=== PATIENT | female | born 1965 | race Caucasian/White ===

== ENCOUNTER → 2024-04-24 | Outpatient (CLI) | payer OTHER ==
[2024-04-24 11:40] VITALS: BP 117/73; PULSE 84; RESP 16
--- NOTE | 2024-04-24 14:55 | P.PAINPG ---
PQRS Measure Charge Sheet Comment: HISTORY OF PRESENT ILLNESS: A 58 yr old female as a referral from Dr Mack presents today w severe and chronic LBP > 1 yr secondary to post laminectomy syndrome, R Sacroiliitis for evaluation. Pt states pain level is provoked at 7 /10 in intensity, constant, localized in the lumbar spine, predominantly axial, sharp in character w occasional shooting pain towards the hips, groin and LEs. Pain is provoked by any movement. Pain is alleviated by PT x 6 wks which ended in Jun 2023, physician guided home stretches daily since Jun 2023, medications ([place] 5/325mg #[address] Mack), repositioning and rest . Oswestry axial pain score at 26. PMH: OA, HTN, CAD, Hyperlipidemia, IDDM II, GERD, Asthma, OCD/ Anxiety, JOHN, CKD IIIa, Seasonal Allergies PSH: Ectopic , Joint Replacement, L2-L4 Fusion (2000), Tonsillectomy, Cataract Extraction, Finger Tendon Repair SH: Daily tobacco use, No ETOH abuse, No illicit drug use FH: DM & CAD All: See list Meds: See list REVIEW OF ORGAN SYSTEMS: CONSTITUTIONAL: No fevers or chills. No recent weight loss. NEUROLOGICAL: + numbness and tingling along the distal extremities. No seizure disorders or headaches. MUSCULOSKELETAL: + pain PSYCHIATRIC: Denies current depression or suicidal thoughts. Physical Examinations : Constitutional : Cooperative , not in acute distress . Neurologic : Cranial nerve II to XII intact. No focal neurological deficits. Psychiatric : alert & oriented x 3. Matching mood & appropriate affect. Judgment & insight intact. Musculoskeletal : Cervical Spine Motor strength in the deltoid and biceps: Normal right side. Normal Left side Motor strength biceps and the wrist extensors: Normal right side . Normal left side Motor strength in the triceps muscle: Normal right side. Normal left side Deep tendon reflexes: Normal at the biceps. Normal at Brachioradialis. Normal at triceps Vertebral body tenderness to deep palpation over Cervical facet loading test: positive bilaterally Spurling test: positive bilaterally Neck distraction test: positive bilaterally Ross sign: positive bilaterally Lumbar spine Motor strength lower extremities ,thigh and legs 5/5 Right side , 5/5 Left side Deep tendon reflexes : Normal Knee Jerk. Normal Ankle Jerk Vertebral body tenderness over Duran Test positive Lumbar facet Loading Test: positive Right / positive Left Range of motion of the lumbar spine Flexion 30 degrees, extension 10 degrees Straight Leg Raise test: Left/ Right positive at degrees Vinicius test: positive right / positive left. Severe tenderness over the Sacroiliac joint on the Right / Left sides Gaenslen test: positive bilaterally Seated flexion test: positive bilaterally. Sacral spine : Severe tenderness over the Sacroiliac joint: right side / left side Range of motion: Flexion of the lumbar spine <60 degrees Range of motion: Extension of the lumbar spine <20 degrees Gaenslen's Test positive on R Vinicius test: positive right side / left side Thigh Thrust Test R positive Sacral Thrust Test Assessment/ Plan : R Sacroiliitis, L2-L4 Fusion Recommendation of R SI injection #1. May need a series of injections for optimal pain relief. Risks, benefits of procedure discussed and patient verbalized understanding. Admits to anti- coagulant use or medical history of diabetes. Protocol for discontinuation/ continuation of medications arun procedure discussed. All questions answered. I have spent greater than 30 minutes on patient care today. Dr Powers was available by phone for the evaluation of this patient. The time was used to review the medical records including relevant urine studies and Prescription history (MAPs), review of the available imaging, evaluation and examination of the patient, coordination of care with the medical staff and if applicable referring physicians, as well as creation of the medical record PQRS Narrative: Smoking Status Current every day smoker Home Medications: Ambulatory Orders Cetirizine HCl [Zyrtec] 10 mg PO DAILY 09/24/16 Famotidine [Pepcid] 20 mg PO DAILY #20 tablet 09/24/16 Controlled Substance Measures - Controlled Substance Measures Is patient prescribed a controlled substance at discharge?: No
== END ==
LOC: PNWHC3 10:43
PROVIDERS: ATTEND Specialist
DX: M53.3 Sacrococcygeal disorders, not elsewhere classified (principal); M46.1 Sacroiliitis, not elsewhere classified; M43.26 Fusion of spine, lumbar region; F17.200 Nicotine dependence, unspecified, uncomplicated; Z88.8 Allergy status to other drugs, medicaments and biological substances; Z91.040 Latex allergy status; Z88.0 Allergy status to penicillin
CPT/HCPCS: 99211

== ENCOUNTER 2024-05-13 09:32 | Day surgery (SDC) | payer OTHER ==
[2024-05-13] MEDS ORDERED: LACTATED RINGERS 1,000 ML IV SCH (09:47)
[2024-05-13 10:17] LABS: Glucose,Whole Blood 99 mg/dL (70-110)
[2024-05-13 10:28] VITALS: RESP 16; TEMP 97
[2024-05-13] MEDS ORDERED: ROPIVACAINE 5MG/ML 20ML VIAL ONE (11:08)
[2024-05-13] MEDS ORDERED: methylPREDNISolone ACETATE 40 MG/ML 1 ML VIAL ONE (11:08)
[2024-05-13] MEDS ORDERED: IOPAMIDOL M300 15ML VIAL ONE (11:08)
--- NOTE | 2024-05-13 11:25 | P.PCN ---
Description of Procedure: Preprocedure diagnosis. Sacroiliac joint arthropathy. Postprocedure diagnosis. As above. Procedure done. Injection of the radio contrast material into right sacroiliac joint, sacroiliac joint arthrogram, interpretation of arthrogram. right sacroiliac joint injection with local anesthetics and steroid under fluoroscopic guidance. Anesthesia. Local anesthetic infiltration. As per anesthesia department. Continuous EKG, pulse ox, blood pressure, and verbal communication was maintained with the patient in OR. Blood loss. Minimal. Indication. Sacroiliac joint arthropathy. Discussed the procedure, alternatives, complications which may include infection,bleeding, nerve damage, aggravation of pain which could be permanent. Patient understands and questions were answered. Procedure note. After getting consent patient in OR in prone position. Back prepped with chlorhexidine and draped in sterile manner. After injecting 10 mL of 1% lidocaine subcutaneously, a 22-gauge spinal needle was introduced under tunnel vision of the fluoroscope in the lower and posterior one third of right sacroiliac joint. After needle position confirmation by AP and crosstable lateral view, 1 mL of Isovue 200 contrast was injected. Contrast was noted to be into the sacroiliac joint. After repeat negative aspiration, 2.5 mL solution was injected which consists of 1.5 ml of 0.5% Ropivacaine mixed with 1 mL of 40 mg Depo-Medrol. After the procedure needles were taken out. Bandage applied. Disposition. Patient tolerated the procedure well. No complication. Patient was discharged home in stable condition.
[2024-05-13 11:42] VITALS: BP 110/66; PULSE 67
--- NOTE | 2024-05-13 12:23 | FL ---
Fluoroscopy History: SI JOINT PAIN RT SI JOINT INJECTION. 25 SECS FL. [id number] DAP.
== END 2024-05-13 11:57 | disposition home or self-care (01) ==
LOC: ORPAIN 09:32
PROVIDERS: ATTEND Pain Medicine Interventional Pain Medicine
DX: M46.1 Sacroiliitis, not elsewhere classified (principal); Z88.0 Allergy status to penicillin; Z91.040 Latex allergy status; Z91.09 Other allergy status, other than to drugs and biological substances
CPT/HCPCS: Q9967; J2795; J1010; G0260; 27096

== ENCOUNTER → 2024-05-29 | Outpatient (CLI) | payer OTHER | LOC: PNWHC3 09:45 | PROVIDERS: ATTEND Specialist | DX: M46.1 Sacroiliitis, not elsewhere classified | CPT/HCPCS: 99211 ==

== ENCOUNTER 2024-07-17 08:07 | Day surgery (SDC) | payer OTHER ==
[2024-07-11 17:01] VITALS: BMI 34.3
[2024-07-17] MEDS ORDERED: LACTATED RINGERS 1,000 ML IV SCH (08:15)
[2024-07-17 08:40] VITALS: RESP 16; TEMP 97.1
[2024-07-17 08:41] LABS: Glucose,Whole Blood 85 mg/dL (70-110)
[2024-07-17] MEDS ORDERED: IOPAMIDOL M200 10 ML VIAL ONE (08:47)
[2024-07-17] MEDS ORDERED: TRIAMCINOLONE ACETONIDE 40 MG/ML 1 ML VIAL ONE (08:47)
--- NOTE | 2024-07-17 08:55 | P.PCN ---
Date of Procedure: 07/17/24 Description of Procedure: Pre- and Post-operative Diagnosis: Sacroilitis and Lumbar Spondylosis Procedure: Left side sacroiliac Joint injection under biplanar fluoroscopy Left side sacroiliac joint arthrogram Surgeon: Anjelica Frausto Anesthesia: Local: 1% Lidocaine, IV sedation: None Complications: none EBL : None Specimen removed: None Fluoroscopic image: Saved to patient electronic medical records. Indications for Procedure: The patient is well known to our pain clinic. Failed with the conservative pain management therapy. So scheduled for bilateral sacroiliac joint injection with fluoroscopic guidance. Procedure and Findings: The patient was seen and examined in the holding area. The written informed consent was obtained after explaining the risks, benefits and alternatives of the procedure to the patient. The patient was brought to the procedure room and was placed in the prone position on the operating room table. A pillow was placed under the lower abdomen. The anesthesia was started as mentioned above and monitoring was done with noninvasive blood pressure cuff, EKG and pulse oximetry. The skin preparation was done with ChloraPrep, and draping was done in usual sterile fashion. Sterile technique was observed throughout the procedure. AP and little oblique fluoroscopic views of the sacral spine and pelvis were obtained to identify the left sacroiliac joint. About one cm above the inferior margin of the left sacroiliac joint was marked for needle entry. 2 mL ml of 1% Lidocaine was injected with a 25 gauge needle to achieve adequate local anesthesia of the skin and subcutaneous tissue. A 25 gauge 3.5 inch spinal needle was introduced and advanced into the target area under direct fluoroscopic guidance. A contact was felt and the needle was advanced little further. No parathesia was noted. A negative aspiration was confirmed and then 0.5 ml [id number] was injected. A good dye spread was seen along the joint space. A total of 3 mL ml solution containing Kenalog 40 mg and 2 ml of 1% preservative-free lidocaine was injected slowly. The needles were removed intact. Area was cleaned and bandages were applied. Disposition : The patient tolerated the procedure very well. The patient was transferred to the recovery room and remained stable until discharged home. The patient was given detailed discharge instructions for infection, bleeding, and increased pain at the injection site, and was advised to seek immediate medical attention should significant side effects develop. The patient will be followed up with our Pain Clinic within 2-4 weeks for a repeat procedure if the procedure helpful.
[2024-07-17 09:01] VITALS: BP 114/67; PULSE 74
--- NOTE | 2024-07-17 09:13 | FL ---
EXAMINATION TYPE: FL guided pain mgmt statistic DATE OF EXAM: 07/17/2024 8:57 AM COMPARISON: Pre Operative Images if available both CT/MRI or plain film CLINICAL INDICATION: Female, 58 years old with history of SI Inj; TECHNIQUE: FL guided pain mgmt statistic, multiple fluoroscopic images provided for procedure. Total fluoroscopy time: 11.9 seconds Total submitted images to PACS: 1 DAP: [id number] mGym2 Gycm2 uGym2 cGycm2 or equivalent. FINDINGS: Fluoroscopic images during injection for pain management demonstrate multilevel degeneration changes throughout the spine. No evidence for fracture. No acute process identified. IMPRESSION: 1. No evidence for intraoperative complication. 2. Please see the operative/procedural note for further details. [facility], , 07/17/2024 9:11 AM
== END 2024-07-17 09:13 | disposition home or self-care (01) ==
LOC: ORPAIN 08:07
DX: M46.1 Sacroiliitis, not elsewhere classified
CPT/HCPCS: 27096

== ENCOUNTER → 2024-08-04 | Outpatient (CLI) | payer OTHER ==
[2024-08-04 10:18] VITALS: BP 124/84; PULSE 89; RESP 18; TEMP 99.6
--- NOTE | 2024-08-04 14:25 | P.PAINPG ---
PQRS Measure Charge Sheet Comment: HISTORY OF PRESENT ILLNESS: A 58 yr old female presents today w severe and chronic LBP > 1 yr secondary to post laminectomy syndrome, BL Sacroiliitis for evaluation s/p R SI #1. Pt states she experienced 98 % pain relief s/p procedure. Pt states pain level is provoked at 1 /10 in intensity, constant, localized in the lumbar spine, predominantly axial, sharp in character w occasional shooting pain towards the hips, groin and LEs. Pain is provoked by any movement. Pain is alleviated by PT x 6 wks which ended in Jun 2023, physician guided home stretches daily since Jun 2023, medications, repositioning and rest . Interventional procedures include L SI x1, R SI x1 Medications include [place] 5/325mg #[address] Mack REVIEW OF ORGAN SYSTEMS: CONSTITUTIONAL: No fevers or chills. No recent weight loss. NEUROLOGICAL: + numbness and tingling along the distal extremities. No seizure disorders or headaches. MUSCULOSKELETAL: + pain PSYCHIATRIC: Denies current depression or suicidal thoughts. Physical Examinations : Constitutional : Cooperative , not in acute distress . Neurologic : Cranial nerve II to XII intact. No focal neurological deficits. Psychiatric : alert & oriented x 3. Matching mood & appropriate affect. Judgment & insight intact. Musculoskeletal : Cervical Spine Motor strength in the deltoid and libby ps: Normal right side. Normal Left side Motor strength biceps and the wrist extensors: Normal right side . Normal left side Motor strength in the triceps muscle: Normal right side. Normal left side Deep tendon reflexes: Normal at the biceps. Normal at Brachioradialis. Normal at triceps Vertebral body tenderness to deep palpation over Cervical facet loading test: positive bilaterally Spurling test: positive bilaterally Neck distraction test: positive bilaterally Ross sign: positive bilaterally Lumbar spine Motor strength lower extremities ,thigh and legs 5/5 Right side , 5/5 Left side Deep tendon reflexes : Normal Knee Jerk. Normal Ankle Jerk Vertebral body tenderness over Duran Test positive Lumbar facet Loading Test: positive Right / positive Left Range of motion of the lumbar spine Flexion 30 degrees, extension 10 degrees Straight Leg Raise test: Left/ Right positive at degrees Vinicius test: positive right / positive left. Severe tenderness over the Sacroiliac joint on the Right / Left sides Gaenslen test: positive bilaterally Seated flexion test: positive bilaterally. Sacral spine : Severe tenderness over the Sacroiliac joint: right side / left side Range of motion: Flexion of the lumbar spine <60 degrees Range of motion: Extension of the lumbar spine <20 degrees Gaenslen's Test positive on R Vinicius test: positive right side / left side Thigh Thrust Test R positive Sacral Thrust Test Assessment/ Plan : BL Sacroiliitis, L2-L4 Fusion Will manage residual pain and may RTC on an as needed basis. All questions answered. I have spent greater than 30 minutes on patient care today. Dr Powers was available by phone for the evaluation of this patient. The time was used to review the medical records including relevant urine studies and Prescription history (MAPs), review of the available imaging, evaluation and examination of the patient, coordination of care with the medical staff and if applicable referring physicians, as well as creation of the medical record PQRS Narrative: Smoking Status Current every day smoker Hx Alcohol Use (MH) No Home Medications: Ambulatory Orders Famotidine [Pepcid] 20 mg PO DAILY #20 tablet 09/24/16 Albuterol Inhaler [Ventolin Hfa Inhaler] 1 - 2 puff INHALATION Q6H 05/13/24 Aspirin 81 mg PO DAILY 05/13/24 Atorvastatin [Lipitor] 40 mg PO DAILY 05/13/24 Empagliflozin [Jardiance] 25 mg PO DAILY 05/13/24 Escitalopram Oxalate [Lexapro] 30 mg PO DAILY 05/13/24 Fluticasone Nasal [place] [Flonase Nasal [place]] 1 spray EA NOSTRIL BID 05/13/24 Fluticasone/Umeclidin/Vilanter [Trelegy Ellipta 100-62.5-25] 1 inhalation INHALATION DAILY 05/13/24 Furosemide [Lasix] 40 mg PO BID 05/13/24 HYDROcodone/APAP 5-325MG [[place] 5-325] 1 tab PO TID 05/13/24 Ibuprofen [Advil] 800 mg PO DAILY PRN 05/13/24 Loratadine [Claritin] 10 mg PO DAILY 05/13/24 Losartan Potassium [Cozaar] 100 mg PO DAILY 05/13/24 Montelukast [Singulair] 10 mg PO DAILY 05/13/24 Potassium Chloride [K-Tab ER] 20 meq PO BID 05/13/24 Spironolactone [Aldactone] 25 mg PO DAILY 05/13/24 Tirzepatide [Mounjaro] 7.5 mg SQ TH 05/13/24 carvediloL [Coreg] 6.25 mg PO BID 05/13/24 Controlled Substance Measures - Controlled Substance Measures Is patient prescribed a controlled substance at discharge?: No
== END ==
LOC: PNWHC3 09:57
PROVIDERS: ATTEND Specialist
DX: M46.1 Sacroiliitis, not elsewhere classified
CPT/HCPCS: 99211

== ENCOUNTER → 2024-11-10 | Outpatient (CLI) | payer MEDICARE, OTHER ==
[2024-11-10 12:28] VITALS: BP 124/82; PULSE 77; RESP 15; TEMP 89.7
--- NOTE | 2024-11-10 15:21 | P.PAINPG ---
PQRS Measure Charge Sheet Comment: HISTORY OF PRESENT ILLNESS: A 59 yr old female presents today w severe and chronic LBP > 1 yr secondary to post laminectomy syndrome, BL Sacroiliitis for evaluation. Pt states pain level is provoked at 6 /10 in intensity, constant, localized in the lumbar spine, predominantly axial, sharp in character w occasional shooting pain towards the hips and buttocks. Pain is provoked by sitting for periods > 30 min. Pain is alleviated by PT x 6 wks which ended in Jun 2023, physician guided home stretches daily since Jun 2023, medications, repositioning and rest . Interventional procedures include L SI x1 (07/17/24), R SI x1 Medications include [place] 5/325mg #[address] Mack REVIEW OF ORGAN SYSTEMS: CONSTITUTIONAL: No fevers or chills. No recent weight loss. NEUROLOGICAL: + numbness and tingling along the distal extremities. No seizure disorders or headaches. MUSCULOSKELETAL: + pain PSYCHIATRIC: Denies current depression or suicidal thoughts. Physical Examinations : Constitutional : Cooperative , not in acute distress . Neurologic : Cranial nerve II to XII intact. No focal neurological deficits. Psychiatric : alert & oriented x 3. Matching mood & appropriate affect. Judgment & insight intact. Musculoskeletal : Cervical Spine Motor strength in the deltoid and biceps: Normal right side. Normal Left side Motor strength biceps and the wrist extensors: Normal right side . Normal left side Motor strength in the triceps muscle: Normal right side. Normal left side Deep tendon reflexes: Normal at the biceps. Normal at Brachioradialis. Normal at triceps Vertebral body tenderness to deep palpation over Cervical facet loading test: positive bilaterally Spurling test: positive bilaterally Neck distraction test: positive bilaterally Ross sign: positive bilaterally Lumbar spine Motor strength lower extremities ,thigh and legs 5/5 Right side , 5/5 Left side Deep tendon reflexes : Normal Knee Jerk. Normal Ankle Jerk Vertebral body tenderness over Duran Test positive Lumbar facet Loading Test: positive Right / positive Left Range of motion of the lumbar spine Flexion 30 degrees, extension 10 degrees Straight Leg Raise test: Left/ Right positive at degrees Vinicius test: positive right / positive left. Severe tenderness over the Sacroiliac joint on the Right / Left sides Gaenslen test: positive bilaterally Seated flexion test: positive bilaterally. Sacral spine : Severe tenderness over the Sacroiliac joint: right side / left side Range of motion: Flexion of the lumbar spine <60 degrees Range of motion: Extension of the lumbar spine <20 degrees Gaenslen's Test positive BL Vinicius test: positive right side / left side Thigh Thrust Test BL positive Sacral Thrust Test Assessment/ Plan : BL Sacroiliitis, L2-L4 Fusion Recommendation of BL SI injection #2. Risks, benefits of procedure discussed and pt verbalized understanding. All questions answered. I have spent greater than 30 minutes on patient care today. Dr Powers was available by phone for the evaluation of this patient. The time was used to review the medical records including relevant urine studies and Prescription history (MAPs), review of the available imaging, evaluation and examination of the patient, coordination of care with the medical staff and if applicable referring physicians, as well as creation of the medical record PQRS Narrative: Smoking Status Current every day smoker Narcotic Agreement Date Signed 08/04/24 Hx Alcohol Use (MH) No Home Medications: Ambulatory Orders Famotidine [Pepcid] 20 mg PO DAILY #20 tablet 09/24/16 Albuterol Inhaler [Ventolin Hfa Inhaler] 1 - 2 puff INHALATION Q6H 05/13/24 Aspirin 81 mg PO DAILY 05/13/24 Atorvastatin [Lipitor] 40 mg PO DAILY 05/13/24 Empagliflozin [Jardiance] 25 mg PO DAILY 05/13/24 Escitalopram Oxalate [Lexapro] 30 mg PO DAILY 05/13/24 Fluticasone Nasal [place] [Flonase Nasal [place]] 1 spray EA NOSTRIL BID 05/13/24 Fluticasone/Umeclidin/Vilanter [Trelegy Ellipta 100-62.5-25] 1 inhalation INHALATION DAILY 05/13/24 Furosemide [Lasix] 40 mg PO BID 05/13/24 HYDROcodone/APAP 5-325MG [[place] 5-325] 1 tab PO TID 05/13/24 Ibuprofen [Advil] 800 mg PO DAILY PRN 05/13/24 Loratadine [Claritin] 10 mg PO DAILY 05/13/24 Losartan Potassium [Cozaar] 100 mg PO DAILY 05/13/24 Montelukast [Singulair] 10 mg PO DAILY 05/13/24 Potassium Chloride [K-Tab ER] 20 meq PO BID 05/13/24 Spironolactone [Aldactone] 25 mg PO DAILY 05/13/24 Tirzepatide [Mounjaro] 7.5 mg SQ TH 05/13/24 carvediloL [Coreg] 6.25 mg PO BID 05/13/24 Controlled Substance Measures - Controlled Substance Measures Is patient prescribed a controlled substance at discharge?: No
== END ==
LOC: PNWHC3 11:09
PROVIDERS: ATTEND Specialist
DX: M46.1 Sacroiliitis, not elsewhere classified (principal); M43.26 Fusion of spine, lumbar region; F17.210 Nicotine dependence, cigarettes, uncomplicated; Z88.8 Allergy status to other drugs, medicaments and biological substances; Z91.040 Latex allergy status; Z88.0 Allergy status to penicillin; Z88.6 Allergy status to analgesic agent; Z91.09 Other allergy status, other than to drugs and biological substances
CPT/HCPCS: 99212

== ENCOUNTER → 2024-12-17 | Outpatient (CLI) | payer MEDICARE, OTHER ==
[2024-12-17 10:04] VITALS: BP 127/83; PULSE 71; RESP 15; TEMP 96.8
--- NOTE | 2024-12-17 15:38 | P.PAINPG ---
PQRS Measure Charge Sheet Comment: HISTORY OF PRESENT ILLNESS: A 59 yr old female presents today w severe and chronic LBP > 1 yr secondary to post laminectomy syndrome, BL Sacroiliitis for evaluation s/p BL SI injection #2. Pt states she experienced 75 % pain relief x 3 wks s/p procedure. Pt states pain level is provoked at 1 /10 in intensity, constant, localized in the lumbar spine, predominantly axial, sharp in character w occasional shooting pain towards the hips and buttocks. Pain is provoked by sitting for periods > 30 min. Pain is alleviated by PT x 6 wks which ended in Jun 2023, physician guided home stretches daily since Jun 2023, medications, repositioning and rest . Interventional procedures include L SI x1 (07/17/24), R SI x1, BL SI x1 (12/09) Medications include [place] 5/325mg #[address] Mack REVIEW OF ORGAN SYSTEMS: CONSTITUTIONAL: No fevers or chills. No recent weight loss. NEUROLOGICAL: + numbness and tingling along the distal extremities. No seizure disorders or headaches. MUSCULOSKELETAL: + pain PSYCHIATRIC: Denies current depression or suicidal thoughts. Physical Examinations : Constitutional : Cooperative , not in acute distress . Neurologic : Cranial nerve II to XII intact. No focal neurological deficits. Psychiatric : alert & oriented x 3. Matching mood & appropriate affect. Judgment & insight intact. Musculoskeletal : Cervical Spine Motor strength in the deltoid and biceps: Normal right side. Normal Left side Motor strength biceps and the wrist extensors: Normal right side . Normal left side Motor strength in the triceps muscle: Normal right side. Normal left side Deep tendon reflexes: Normal at the biceps. Normal at Brachioradialis. Normal at triceps Vertebral body tenderness to deep palpation over Cervical facet loading test: positive bilaterally Spurling test: positive bilaterally Neck distraction test: positive bilaterally Ross sign: positive bilaterally Lumbar spine Motor strength lower extremities ,thigh and legs 5/5 Right side , 5/5 Left side Deep tendon reflexes : Normal Knee Jerk. Normal Ankle Jerk Vertebral body tenderness over Duran Test positive Lumbar facet Loading Test: positive Right / positive Left Range of motion of the lumbar spine Flexion 30 degrees, extension 10 degrees Straight Leg Raise test: Left/ Right positive at degrees Vinicius test: positive right / positive left. Severe tenderness over the Sacroiliac joint on the Right / Left sides Gaenslen test: positive bilaterally Seated flexion test: positive bilate rally. Sacral spine : Severe tenderness over the Sacroiliac joint: right side / left side Range of motion: Flexion of the lumbar spine <60 degrees Range of motion: Extension of the lumbar spine <20 degrees Gaenslen's Test positive BL Vinicius test: positive right side / left side Thigh Thrust Test BL positive Sacral Thrust Test Assessment/ Plan : BL Sacroiliitis, L2-L4 Fusion Will manage residual pain and may RTC on an as needed basis. All questions answered. I have spent greater than 30 minutes on patient care today. Dr Powers was available by phone for the evaluation of this patient. The time was used to review the medical records including relevant urine studies and Prescription history (MAPs), review of the available imaging, evaluation and examination of the patient, coordination of care with the medical staff and if applicable refer ring physicians, as well as creation of the medical record PQRS Narrative: Smoking Status Current every day smoker Narcotic Agreement Date Signed 08/04/24 Hx Alcohol Use (MH) No Home Medications: Ambulatory Orders Famotidine [Pepcid] 20 mg PO DAILY #20 tablet 09/24/16 Albuterol Inhaler [Ventolin Hfa Inhaler] 1 - 2 puff INHALATION Q6H 05/13/24 Aspirin 81 mg PO DAILY 05/13/24 Atorvastatin [Lipitor] 40 mg PO DAILY 05/13/24 Empagliflozin [Jardiance] 25 mg PO DAILY 05/13/24 Escitalopram Oxalate [Lexapro] 30 mg PO DAILY 05/13/24 Fluticasone Nasal [place] [Flonase Nasal [place]] 1 spray EA NOSTRIL BID 05/13/24 Fluticasone/Umeclidin/Vilanter [Trelegy Ellipta 100-62.5-25] 1 inhalation INHALATION DAILY 05/13/24 Furosemide [Lasix] 40 mg PO BID 05/13/24 HYDROcodone/APAP 5-325MG [[place] 5-325] 1 tab PO TID 05/13/24 Ibuprofen [Advil] 800 mg PO DAILY PRN 05/13/24 Loratadine [Claritin] 10 mg PO DAILY 05/13/24 Losartan Potassium [Cozaar] 100 mg PO DAILY 05/13/24 Montelukast [Singulair] 10 mg PO DAILY 05/13/24 Potassium Chloride [K-Tab ER] 20 meq PO BID 05/13/24 Spironolactone [Aldactone] 25 mg PO DAILY 05/13/24 Tirzepatide [Mounjaro] 7.5 mg SQ TH 05/13/24 carvediloL [Coreg] 6.25 mg PO BID 05/13/24 Controlled Substance Measures - Controlled Substance Measures Is patient prescribed a controlled substance at discharge?: No
== END ==
LOC: PNWHC3 09:23
PROVIDERS: ATTEND Specialist
DX: M43.26 Fusion of spine, lumbar region (principal); M46.1 Sacroiliitis, not elsewhere classified; F17.210 Nicotine dependence, cigarettes, uncomplicated; Z88.8 Allergy status to other drugs, medicaments and biological substances; Z91.040 Latex allergy status; Z88.0 Allergy status to penicillin; Z88.6 Allergy status to analgesic agent; Z91.09 Other allergy status, other than to drugs and biological substances
CPT/HCPCS: 99212

== ENCOUNTER 2025-04-16 11:42 | Day surgery (SDC) | payer MEDICARE, OTHER ==
[2025-04-14 15:54] VITALS: BMI 30.4
[~2025-04-16 11:42] MED LIST: LACTATED RINGERS 1,000 ML IV SCH
[2025-04-16 13:29] VITALS: TEMP 97.6
[2025-04-16 13:36] LABS: Glucose,Whole Blood 86 mg/dL (70-110)
[2025-04-16] MEDS ORDERED: methylPREDNISolone ACETATE 80 MG/ML 1 ML VIAL ONE (14:17)
[2025-04-16] MEDS ORDERED: ROPIVACAINE 5 MG/ML 30 ML VIAL ONE (14:17)
[2025-04-16] MEDS ORDERED: IOPAMIDOL M300 15ML VIAL ONE (14:17)
--- NOTE | 2025-04-16 14:33 | P.PCN ---
Description of Procedure: Preprocedure diagnosis. Sacroiliac joint arthropathy. Postprocedure diagnosis. As above. Procedure done. Injection of the radio contrast material into bilateral sacroiliac joint, sacroiliac joint arthrogram, interpretation of arthrogram. Bilateral sacroiliac joint injection with local anesthetics and steroid under fluoroscopic guidance. Anesthesia. Local anesthetic infiltration. Continuous EKG, pulse ox, blood pressure, and verbal communication was maintained with the patient in OR. Blood loss. Minimal. Indication. Sacroiliac joint arthropathy. Discussed the procedure, alternatives, complications which may include infection,bleeding, nerve damage, aggravation of pain which could be permanent. Patient understands and questions were answered. Procedure note. After getting consent patient in OR in prone position. Back prepped with chlorhexidine and draped in sterile manner. After injecting 10 mL of 1% lidocaine subcutaneously, a 23-gauge spinal needle was introduced under tunnel vision of the fluoroscope in the lower and posterior one third of right/left sacroiliac joint. After needle position confirmation by AP and crosstable lateral view, 1 mL of Isovue 200 contrast was injected. Contrast was noted to be into the sacroiliac joint. After repeat negative aspiration, 2.5 mL solution was injected which consists of 1.5 ml of 0.5% Ropivacaine mixed with 1 mL of 40 mg Depo-Medrol. In exactly same way left sacroiliac joint was injected with same amount of solution. After the procedure needles were taken out. Bandage applied. Disposition. Patient tolerated the procedure well. No complication. Patient was discharged home in stable condition.
[2025-04-16 14:56] VITALS: BP 102/83; PULSE 58; RESP 16
--- NOTE | 2025-04-16 16:54 | FL ---
Fluoroscopic guided pain management statistically. HISTORY: Low back pain. COMPARISON: 12/02/2024. TECHNIQUE: 45.1 seconds of fluoroscopy and 4 spot films were obtained demonstrating projections of th e bilateral SI joints. IMPRESSION: Bilateral posterior SI joint injections. [facility], , 04/16/2025 4:52 PM
== END 2025-04-16 15:04 ==
LOC: ORPAIN 11:42
PROVIDERS: ATTEND Pain Medicine Interventional Pain Medicine
DX: M46.1 Sacroiliitis, not elsewhere classified (principal); E11.9 Type 2 diabetes mellitus without complications; Z79.85 Long-term (current) use of injectable non-insulin antidiabetic drugs; Z79.82 Long term (current) use of aspirin; Z91.040 Latex allergy status; Z88.0 Allergy status to penicillin; Z88.8 Allergy status to other drugs, medicaments and biological substances
CPT/HCPCS: 27096; J2795; Q9967; J1010; G0260

== ENCOUNTER → 2025-05-11 | Outpatient (CLI) | payer MEDICARE, OTHER ==
[2025-05-11 11:03] VITALS: BP 93/61; PULSE 78; RESP 18
== END ==
LOC: PNWHC3 10:36
PROVIDERS: ATTEND Anesthesiology
DX: M53.3 Sacrococcygeal disorders, not elsewhere classified (principal)
CPT/HCPCS: 99211